=== PATIENT | female | born 1990 | race Caucasian/White ===

== ENCOUNTER 2016-12-22 08:42 | Emergency (ER) | payer BC ==
[~2016-12-22] VITALS: Wt 53.6 kg
[~2016-12-22 08:42] MED LIST: NITR-58 PO; PHEN-537 PO
[2016-12-22] MEDS ORDERED: ACETAMINOPHEN 500 MG TAB PO STA (10:12)
--- NOTE | 2016-12-22 10:22 | ERD ---
ER Documentation Chief Complaint Date/Time DATE: 12/22/16 TIME: 10:19 Chief Complaint right side abd pain for the past week no vomiting. no dysuria. no vag bleed HPI This a 18-year-old female who presents to the emergency department today complaining of abdominal pain for the past couple of days. Patient states that one week ago she had the stomach flu and everyone in her family was sick. States that she started feeling better however now she has pain. She states that her pain is intermittent and is worse on empty stomach and improves with food. She is not take any medication for the painDenies any nausea vomiting, fevers or chills. Denies any diarrhea or constipation.. ROS All systems reviewed and are negative except as per history of present illness. Medications Home Meds Active Scripts Acetaminophen* (Tylophen*) 500 Mg Capsule, 1 CAP PO Q6H Y for PAIN AND OR ELEVATED TEMP, #30 CAP Prov:JAVIER DAVIS MD 12/22/16 Famotidine* (Pepcid*) 20 Mg Tablet, 20 MG PO BID for 14 Days, TAB Prov:JAVIER DAVIS MD 12/22/16 Nitrofurantoin Monohyd Macrocr* (Macrobid*) 100 Mg Capsr, 100 MG PO BID for 5 Days, CAP Prov:RAVINDER STOVER DO 08/19/16 Phenazopyridine Hcl* (Pyridium*) 100 Mg Tab, 100 MG PO TID Y for URINARY PAIN, # 8 TAB Prov:RAVINDER STOVER DO 08/19/16 Allergies Allergies: Coded Allergies: No Known Drug Allergy (Verified Allergy, Unknown, 03/25/08) PMhx/Soc History of Surgery: Yes (CHOLECYSTECTOMY) Anesthesia Reaction: No Hx Neurological Disorder: No Hx Respiratory Disorders: No Hx Cardiac Disorders: No Hx Psychiatric Problems: No Hx Miscellaneous Medical Probl: No Hx Alcohol Use: No Hx Substance Use: No Hx Tobacco Use: No Physical Exam Vitals Vital Signs Date Time Temp Pulse Resp B/P Pulse Ox O2 Delivery O2 Flow Rate FiO2 12/22/16 08:49 98.8 88 20 158/85 99 Physical Exam Const: No acute distress Head: Atraumatic Eyes: Normal Conjunctiva ENT: Normal External Ears, Nose and Mouth. Neck: Full range of motion..~ No meningismus. Resp: Clear to auscultation bilaterally Cardio: Regular rate and rhythm, no murmurs Abd: Soft, epigastric tenderness non distended. Normal bowel sounds. No right upper quadrant pain. Negative Garcia's. No lower abdominal pain. No tenderness at McBurney's. Skin: No petechiae or rashes Neur: Awake and alert Psych: Normal Mood and Affect Result Diagram: 12/22/16 1028 12/22/16 1028 Results 24 hrs Laboratory Tests Test 12/22/16 10:25 12/22/16 10:28 Bedside Urine pH (LAB) 8.5 Bedside Urine Protein (LAB) Negative Bedside Urine Glucose (UA) Negative Bedside Urine Ketones (LAB) Negative Bedside Urine Blood Trace-intact Bedside Urine Nitrite (LAB) Negative Bedside Urine Leukocyte Esterase (L Negative White Blood Count 12.010^3/ul Red Blood Count 5.4010^6/ul Hemoglobin 15.1g/dl Hematocrit 44.2% Mean Corpuscular Volume 81.9fl Mean Corpuscular Hemoglobin 28.0pg Mean Corpuscular Hemoglobin Concent 34.2g/dl Red Cell Distribution Width 13.4% Platelet Count 02314^3/UL Mean Platelet Volume 10.5fl Neutrophils % 66.3% Lymphocytes % 26.4% Monocytes % 5.9% Eosinophils % 0.8% Basophils % 0.3% Nucleated Red Blood Cells % 0.0/100WBC Neutrophils # 8.010^3/ul Lymphocytes # 3.210^3/ul Monocytes # 0.710^3/ul Eosinophils # 0.110^3/ul Basophils # 0.010^3/ul Nucleated Red Blood Cells # 0.010^3/ul Sodium Level 139mmol/L Potassium Level 4.0mmol/L Chloride Level 100mmol/L Carbon Dioxide Level 29mmol/L Anion Gap 14 Blood Urea Nitrogen 10mg/dl Creatinine 0.53mg/dl Glucose Level 103mg/dl Calcium Level 9.9mg/dl Total Bilirubin 0.4mg/dl Direct Bilirubin 0.00mg/dl Indirect Bilirubin 0.4mg/dl Aspartate Amino Transf (AST/SGOT) 29IU/L Alanine Aminotransferase (ALT/SGPT) 51IU/L Alkaline Phosphatase 86IU/L Total Protein 8.8g/dl Albumin 4.7g/dl Globulin 4.10g/dl Albumin/Globulin Ratio 1.14 Lipase 66U/L Current Medications Medications (Trade) Dose Ordered Sig/Timmy Route PRN Reason Start Time Stop Time Status Last Admin Dose Admin Acetaminophen (Tylenol Tab) 500 mg ONCE STAT PO 12/22/16 10:12 12/22/16 10:14 DC 12/22/16 10:28 Miscellaneous Medication (Gi Cocktail (2)) 40 ml ONCE ONCE PO 12/22/16 10:30 12/22/16 10:31 DC 12/22/16 10:28 Famotidine (Pepcid) 20 mg ONCE ONCE PO 12/22/16 10:30 12/22/16 10:31 DC 12/22/16 10:28 Procedures/MDM This is a 26-year-old female presents to the emergency department today complaining of abdominal pain for the past 2 days. Patient has a history of stomach flu last week. On physical exam patient has epigastric tenderness. Patient has no right upper quadrant tenderness and no lower abdominal pain I do not feel that she requires imaging at this time. I did however obtain laboratory work as well as a UA. Laboratory work shows a mildly elevated white blood cell count of 12. She is not anemic. Platelets are within normal limits. Electrolytes are within normal limits. Liver function is within normal limits. Lipase is within normal limits. UA is negative for infection. Urine test test is negative. Patient's epigastric pain most consistent with gastric reflux or gastritis. Patient's pain is intermittent and improves with food. She is afebrile and otherwise well-appearing again she has no right upper quadrant pain and no lower abdominal pain of low suspicion for acute cholecystitis, pancreatitis, appendicitis or acute surgical abdomen at this time. Patient's mildly elevated white blood cell count may be reactive. Patient was given Tylenol, Pepcid, GI cocktail here in the emergency department and stated symptoms improved. She will be given a prescription for Tylenol, Pepcid for home At this time the patient is stable for discharge and outpatient management. Patient should follow up with their PCP in the next 1-2 days. They may return to the emergency department sooner for any persistent or worsening of symptoms. Patient understood and agreed with the plan. Discussed the patient with Dr. Davis and he is in agreement with the plan Departure Diagnosis: Primary Impression: Abdominal pain Abdominal location: epigastric Qualified Code: R10.13 - Epigastric pain Condition: Fair PROUSE,SESAR M. PA-C Dec 22, 2016 10:22
[2016-12-22 10:26] LABS: URINE BLOOD (Dip) POC Trace-intact (NEGATIVE)
[2016-12-22] MEDS ORDERED: FAMOTIDINE 20 MG TAB PO ONE (10:30)
[2016-12-22] MEDS ORDERED: LIDOCAINE/MYLANTA 40 ML BTL PO ONE (10:30)
[2016-12-22 10:37] LABS: ADD SCAN DIFF NO
[2016-12-22 10:47] LABS: BASOPHILS % 0.3 % (0.0-2.0); EOSINOPHILS # 0.1 10^3/ul (0.0-0.5); EOSINOPHILS % 0.8 % (0.0-7.0); HEMATOCRIT 44.2 % (37.0-47.0); HEMOGLOBIN 15.1 g/dl (12.0-16.0); LYMPHOCYTES # 3.2 10^3/ul (0.8-2.9); LYMPHOCYTES % 26.4 % (15.0-51.0); MEAN CORPUSCULAR HGB CONC 34.2 g/dl (32.0-37.0); MEAN CORPUSCULAR VOLUME 81.9 fl (82.0-101.0); MEAN PLATELET VOLUME 10.5 fl (7.4-10.4); MONOCYTE # 0.7 10^3/ul (0.3-0.9); MONOCYTES % 5.9 % (0.0-11.0); NEUTROPHILS % 66.3 % (39.0-77.0); PLATELET COUNT 331 10^3/UL (140-415); RED CELL DISTRIBUTION WIDTH 13.4 % (11.5-14.5)
[2016-12-22 10:53] LABS: ALBUMIN 4.7 g/dl (3.3-4.9)
[2016-12-22 10:55] LABS: BILIRUBIN,INDIRECT 0.4 mg/dl (0-1.1); BILIRUBIN,TOTAL 0.4 mg/dl (0.2-1.3); CREATININE 0.53 mg/dl (0.44-1.00)
[2016-12-22 10:56] LABS: ALBUMIN/GLOBULIN RATIO 1.14; CALCIUM 9.9 mg/dl (8.4-10.2); TOTAL PROTEIN 8.8 g/dl (6.1-8.1)
[2016-12-22] MEDS ORDERED: FAMO-18 PO (11:22)
[2016-12-22] MEDS ORDERED: ACET500C5 PO (11:22)
[2016-12-22 11:33] VITALS: BP 132/83; PULSE 68; RESP 20; TEMP 98.2
== END 2016-12-22 11:34 | disposition home or self-care (01) ==
LOC: FTE 08:42
DX: R10.13 Epigastric pain (principal)
CPT/HCPCS: 80053; 81003; 83690; 85025; Z7610; 36415; 99283

== ENCOUNTER 2018-07-21 11:45 | Emergency (ER) | END 2018-07-21 12:20 | disposition home or self-care (01) ==

== ENCOUNTER 2018-11-29 08:36 | Emergency (ER) | payer BC ==
[~2018-11-29] VITALS: Ht 167.6 cm; Wt 52.7 kg
[~2018-11-29 08:36] MED LIST changes: +ACET500C5 PO; +FAMO-96 PO; +IBUP-1542 PO; +PENI500T PO
[2018-11-29 08:45] VITALS: Ht 167.6 cm; Wt 52.7 kg
[2018-11-29] MEDS ORDERED: KETOROLAC 30 MG INJ IM STA (09:14)
[2018-11-29] MEDS ORDERED: IBUP-1542 PO (09:15)
[2018-11-29 09:25] VITALS: BP 128/84; PULSE 77; RESP 20
--- NOTE | 2018-11-29 10:37 | ERD ---
ER Documentation Chief Complaint Chief Complaint Complains of a headche, sinus pressure x 1 week HPI Patient is a 28-year-old female with no medical problems who presents with a headache. She has had a headache for greater than 1 week. She also has sore throat, cough, nausea, and runny nose. She has no fevers. She did get her flu shot this year. She has not called her primary doctor as of yet. Her primary doctor is Dr. Ricks. She tried [id number] Tylenol. Upon review of old medical records this is the patient's eighth visit to the ER since 2007. ROS All systems reviewed and are negative except as per history of present illness. Medications Home Meds Active Scripts Ibuprofen* (Motrin*) 600 Mg Tab, 600 MG PO Q6H PRN for PAIN AND OR ELEVATED TEMP, #30 TAB Prov:AIMEE MAZARIEGOS MD 11/29/18 Ibuprofen* (Motrin*) 600 Mg Tab, 600 MG PO Q6, #30 TAB Prov:VANESSA SMITH PA-C 07/21/18 Penicillin V Potassium* (Penicillin V K*) 500 Mg Tab, 500 MG PO Q8, #21 TAB Prov:VANESSA SMITH PA-C 07/21/18 Acetaminophen* (Tylophen*) 500 Mg Capsule, 1 CAP PO Q6H PRN for PAIN AND OR ELEVATED TEMP, #30 CAP Prov:JAVIER DAVIS MD 12/22/16 Famotidine* (Pepcid*) 20 Mg Tablet, 20 MG PO BID for 14 Days, TAB Prov:JAVIER DAVIS MD 12/22/16 Nitrofurantoin Monohyd Macrocr* (Macrobid*) 100 Mg Capsr, 100 MG PO BID for 5 Days, CAP Prov:RAVINDER STOVER DO 08/19/16 Phenazopyridine Hcl* (Pyridium*) 100 Mg Tab, 100 MG PO TID PRN for URINARY PAIN, #8 TAB Prov:RAVINDER STOVER DO 08/19/16 Allergies Allergies: Coded Allergies: No Known Drug Allergy (Verified Allergy, Unknown, 03/25/08) PMhx/Soc History of Surgery: Yes (CHOLECYSTECTOMY) Anesthesia Reaction: No Hx Neurological Disorder: No Hx Respiratory Disorders: No Hx Cardiac Disorders: No Hx Psychiatric Problems: No Hx Miscellaneous Medical Probl: No Hx Alcohol Use: No Hx Substance Use: No Hx Tobacco Use: No Smoking Status: Never smoker FmHx Family History: No diabetes Physical Exam Vitals Vital Signs Date Temp Pulse Resp B/P (MAP) Pulse Ox O2 O2 Flow FiO2 Time Delivery Rate 11/29/18 77 20 128/84 98 Room Air 09:25 (99) 11/29/18 97.8 80 20 132/71 99 08:45 (91) Physical Exam Const: No acute distress Head: Atraumatic Eyes: Normal Conjunctiva ENT: Normal External Ears, Nose and Mouth. Neck: Full range of motion. No meningismus. Resp: Clear to auscultation bilaterally Cardio: Regular rate and rhythm, no murmurs Abd: Soft, non tender, non distended. Normal bowel sounds Skin: No petechiae or rashes Back: No midline or flank tenderness Ext: No cyanosis, or edema Neur: Awake and alert, cranial nerves II through XII intact, strength is 5 out of 5 in all 4 extremities, no slurred speech Psych: Normal Mood and Affect Results 24 hrs Current Medications Medications Dose Sig/Timmy Start Time Status Last (Trade) Ordered Route PRN Stop Time Admin Dose Reason Admin Ketorolac 30 mg ONCE STAT 11/29/18 DC 11/29/18 Tromethamine IM 09:14 11/29/18 09:25 (Toradol) 09:15 Procedures/MDM Patient is a 28-year-old female who presents with what appears to be a viral syndrome. Her symptoms are consistent with this. Her neurologic exam is normal. I doubt intracranial hemorrhage, mass, or stroke. I believe the risk of doing a CT scan of the brain outweigh the benefits. The patient will be discharged with a prescription for ibuprofen. She was given Toradol in the emergency department. She can return for any worsening symptoms. Departure Diagnosis: Primary Impression: Viral syndrome Additional Impression: Headache Headache type: unspecified Headache chronicity pattern: acute headache Intractability: not intractable Qualified Codes: R51 - Headache Condition: Fair Patient Instructions: Self-Care for Headaches Referrals: Dr. Ricks Additional Instructions: Call your primary care doctor TOMORROW for an appointment during the next 1-2 days.See the doctor sooner or return here if your condition worsens before your appointment time. AIMEE MAZARIEGOS MD Nov 29, 2018 10:37
== END 2018-11-29 09:44 | disposition home or self-care (01) ==
LOC: E/R 08:36
DX: B34.9 Viral infection, unspecified (principal)
CPT/HCPCS: 96372; J1885; Z7502

== ENCOUNTER 2018-12-13 08:27 | Emergency (ER) | payer BC ==
[~2018-12-13] VITALS: Ht 167.6 cm; Wt 53.0 kg
[2018-12-13 08:35] VITALS: BP 112/55; PULSE 74; RESP 20; Ht 167.6 cm; Wt 53.0 kg
[2018-12-13] MEDS ORDERED: AMOX1TAB10 PO (09:02)
[2018-12-13] MEDS ORDERED: HYDR-4011 PO (09:02)
--- NOTE | 2018-12-13 09:15 | ERD ---
ER Documentation Chief Complaint Chief Complaint Complains of dental pain since last night HPI 28-year-old male presenting with dental pain to the left lower tooth space times last night. Patient is a mild swelling and has been applying ice. No fevers. Patient has a broken tooth which is likely the cause. Denies medical problems. NKDA. Surgical history denies. Social history denies ROS All systems reviewed and are negative except as per history of present illness. Medications Home Meds Active Scripts Hydrocodone/Acetaminophen ([place] 5-325 Tablet) 1 Each Tablet, 1 TAB PO Q6H PRN for PAIN, #7 TAB Prov:NATHAYL SONI PA-C 12/13/18 Amoxicillin/Potassium Clav (Amox-Clav 875-125 mg Tablet) 875-125 mg Tab, 1 TAB PO BID for 7 Days, #14 TAB Prov:NATHALY SONI PA-C 12/13/18 Ibuprofen* (Motrin*) 600 Mg Tab, 600 MG PO Q6H PRN for PAIN AND OR ELEVATED TEMP, #30 TAB Prov:AIMEE MAZARIEGOS MD 11/29/18 Ibuprofen* (Motrin*) 600 Mg Tab, 600 MG PO Q6, #30 TAB Prov:VANESSA SMITHC 07/21/18 Penicillin V Potassium* (Penicillin V K*) 500 Mg Tab, 500 MG PO Q8, #21 TAB Prov:VANESSA SMITHC 07/21/18 Acetaminophen* (Tylophen*) 500 Mg Capsule, 1 CAP PO Q6H PRN for PAIN AND OR ELEVATED TEMP, #30 CAP Prov:JAVIER DAVIS MD 12/22/16 Famotidine* (Pepcid*) 20 Mg Tablet, 20 MG PO BID for 14 Days, TAB Prov:JAVIER DAVIS MD 12/22/16 Nitrofurantoin Monohyd Macrocr* (Macrobid*) 100 Mg Capsr, 100 MG PO BID for 5 Days, CAP Prov:RAVINDER STOVER DO 08/19/16 Phenazopyridine Hcl* (Pyridium*) 100 Mg Tab, 100 MG PO TID PRN for URINARY PAIN, #8 TAB Prov:RAVINDER STOVER DO 08/19/16 Allergies Allergies: Coded Allergies: No Known Drug Allergy (Verified Allergy, Unknown, 03/25/08) PMhx/Soc History of Surgery: Yes (CHOLECYSTECTOMY) Anesthesia Reaction: No Hx Neurological Disorder: No Hx Respiratory Disorders: No Hx Cardiac Disorders: No Hx Psychiatric Problems: No Hx Miscellaneous Medical Probl: No Hx Alcohol Use: No Hx Substance Use: No Hx Tobacco Use: No FmHx Family History: No diabetes, No coronary disease, No other Physical Exam Vitals Vital Signs Date Temp Pulse Resp B/P (MAP) Pulse Ox O2 O2 Flow FiO2 Time Delivery Rate 12/13/18 98.6 74 20 112/55 98 08:35 (74) Physical Exam GENERAL: The patient is well-appearing, well-nourished, in no acute distress HEENT: Atraumatic. Conjunctivae are pink. Pupils equal, round, and reactive to light. There is no scleral icterus. Tympanic membranes clear bilaterally. Oropharynx clear. Poor dentition throughout. NECK: C-spine is soft and supple. There is no meningismus. There is no cervical lymphadenopathy. CHEST: Clear to auscultation bilaterally. There are no rales, wheezes or rhon chi. HEART: Regular rate and rhythm. No murmurs, clicks, rubs or gallops. Procedures/MDM MDM: 28-year-old female presenting with dental pain. Patient was discharged with antibiotics and pain medication. She is recommended to follow-up with dentist. Patient is told symptoms change or worsen to return immediately to the ER. All questions answered at discharge Departure Diagnosis: Primary Impression: Toothache Condition: Stable Patient Instructions: Dental Pain Referrals: [facility] ([facility] walk in clinic) Additional Instructions: FOLLOW UP WITH YOUR PRIMARY CARE PHYSICIAN TOMORROW.Return to this facility if you are not improving as expected. NATHALY SONI PA-C Dec 13, 2018 09:15
== END 2018-12-13 11:07 | disposition home or self-care (01) ==
LOC: FTE 08:27
DX: K08.89 Other specified disorders of teeth and supporting structures (principal)
CPT/HCPCS: 99283

== ENCOUNTER 2019-04-13 10:43 | Emergency (ER) | payer BC ==
[~2019-04-13] VITALS: Wt 52.7 kg
[~2019-04-13 10:43] MED LIST changes: +AMOX1TAB10 PO; +HYDR-4011 PO
[2019-04-13 10:44] VITALS: BP 144/83; PULSE 110; RESP 20
[2019-04-13] MEDS ORDERED: NPH10OT RIGHT EAR (11:34)
[2019-04-13] MEDS ORDERED: NAPR-985 PO (11:34)
[2019-04-13] MEDS ORDERED: PSEU-79 PO (11:34)
--- NOTE | 2019-04-13 14:10 | ERD ---
ER Documentation Chief Complaint Chief Complaint r. earache HPI 28-year-old female presenting with right-sided ear pain. Patient states that started 4 days ago. Is progressively getting worse. Has no runny nose mild cough. Denies medical problems. Has been swimming. Denies medical problems. NKDA. Surgical history cholecystectomy. Social history denies ROS All systems reviewed and are negative except as per history of present illness. Medications Home Meds Active Scripts Naproxen* (Naprosyn*) 500 Mg Tablet, 500 MG PO BID PRN for PAIN AND/OR INFLAMMATION, #30 TAB Prov:NATHALY SONI PA-C 04/13/19 Pseudoephedrine Hcl* (Suphedrin*) 30 Mg Tablet, 30 MG PO Q6 PRN for CONGESTION, #30 TAB Prov:NATHALY SONI PA-C 04/13/19 Neomycin/Polymyxin/Hydrocort* (Cortisporin* Otic) 10 Ml Susp, 4 DROP RIGHT EAR QID for 7 Days, EA Prov:NATHALY SONI PA-C 04/13/19 Hydrocodone/Acetaminophen ([place] 5-325 Tablet) 1 Each Tablet, 1 TAB PO Q6H PRN for PAIN, #7 TAB Prov:NATHALY SONI PA-C 12/13/18 Amoxicillin/Potassium Clav (Amox-Clav 875-125 mg Tablet) 875-125 mg Tab, 1 TAB PO BID for 7 Days, #14 TAB Prov:NATHALY SONI PA-C 12/13/18 Ibuprofen* (Motrin*) 600 Mg Tab, 600 MG PO Q6H PRN for PAIN AND OR ELEVATED TEMP, #30 TAB Prov:AIMEE MAZARIEGOS MD 11/29/18 Ibuprofen* (Motrin*) 600 Mg Tab, 600 MG PO Q6, #30 TAB Prov:VANESSA SMITH PA-C 07/21/18 Penicillin V Potassium* (Penicillin V K*) 500 Mg Tab, 500 MG PO Q8, #21 TAB Prov:VANESSA SMITH PA-C 07/21/18 Acetaminophen* (Tylophen*) 500 Mg Capsule, 1 CAP PO Q6H PRN for PAIN AND OR ELEVATED TEMP, #30 CAP Prov:JAVIER DAVIS MD 12/22/16 Famotidine* (Pepcid*) 20 Mg Tablet, 20 MG PO BID for 14 Days, TAB Prov:JAVIER DAVIS MD 12/22/16 Nitrofurantoin Monohyd Macrocr* (Macrobid*) 100 Mg Capsr, 100 MG PO BID for 5 Days, CAP Prov:RAVINDER STOVER DO 08/19/16 Phenazopyridine Hcl* (Pyridium*) 100 Mg Tab, 100 MG PO TID PRN for URINARY PAIN, #8 TAB Prov:RAVINDER STOVER DO 08/19/16 Allergies Allergies: Coded Allergies: No Known Drug Allergy (Verified Allergy, Unknown, 04/13/19) PMhx/Soc History of Surgery: Yes (CHOLECYSTECTOMY) Anesthesia Reaction: No Hx Neurological Disorder: No Hx Respiratory Disorders: No Hx Cardiac Disorders: No Hx Psychiatric Problems: No Hx Miscellaneous Medical Probl: No Hx Alcohol Use: No Hx Substance Use: No Hx Tobacco Use: No Smoking Status: Never smoker FmHx Family History: No diabetes, No coronary disease, No other Physical Exam Vitals Vital Signs Date Temp Pulse Resp B/P (MAP) Pulse Ox O2 O2 Flow FiO2 Time Delivery Rate 04/13/19 98.8 110 20 144/83 100 10:44 (103) Physical Exam GENERAL: The patient is well-appearing, well-nourished, in no acute distress HEENT: Atraumatic. Conjunctivae are pink. Pupils equal, round, and reactive to light. There is no scleral icterus. Tympanic membranes clear bilaterally. Internal ear canal of the right ear is erythematous with positive tragal tenderness oropharynx clear. NECK: C-spine is soft and supple. There is no meningismus. There is no cervical lymphadenopathy. CHEST: Clear to auscultation bilaterally. There are no rales, wheezes or rhonchi. HEART: Regular rate and rhythm. No murmurs, clicks, rubs or gallops. Procedures/MDM MDM: 28-year-old female presenting with right ear pain. I have low suspicion for retained foreign body. I have low suspicion for mastoiditis. I have low suspicion for otitis media or perforated TM. Patient's exam is non-concerning patient likely has otitis externa. She has tenderness to palpation over the tragus. Patient is discharged with supportive medications and told to follow-up with primary care. All questions answered at discharge Departure Diagnosis: Primary Impression: Ear pain Condition: Stable Patient Instructions: External Ear Infection (Adult) Referrals: [facility] YOU HAVE RECEIVED A MEDICAL SCREENING EXAM AND THE RESULTS INDICATE THAT YOU DO NOT HAVE A CONDITION THAT REQUIRES URGENT TREATMENT IN THE EMERGENCY DEPARTMENT. FURTHER EVALUATION AND TREATMENT OF YOUR CONDITION CAN WAIT UNTIL YOU ARE SEEN IN YOUR DOCTORS OFFICE WITHIN THE NEXT 1-2 DAYS. IT IS YOUR RESPONSIBILITY TO MAKE AN APPOINTMENT FOR FOLOW-UP CARE. IF YOU HAVE A PRIMARY DOCTOR --you should call your primary doctor and schedule an appointment IF YOU DO NOT HAVE A PRIMARY DOCTOR YOU CAN CALL OUR PHYSICIAN REFERRAL HOTLINE AT IF YOU CAN NOT AFFORD TO SEE A PHYSICIAN YOU CAN CHOSE FROM THE FOLLOWING [facility] [address] [facility]. [facility] [address] [facility] [facility] [address] [facility] [address] [facility] [facility] [address]. [facility] [address] Additional Instructions: FOLLOW UP WITH YOUR PRIMARY CARE PHYSICIAN TOMORROW.Return to this facility if you are not improving as expected. NATHALY SONI PA-C Apr 13, 2019 14:09
== END 2019-04-13 11:52 | disposition home or self-care (01) ==
LOC: FTE 10:43
DX: H92.01 Otalgia, right ear (principal)
CPT/HCPCS: 99283